=== PATIENT | male | born 2000 | race Caucasian/White ===

== ENCOUNTER 2022-07-24 08:19 | Emergency (ER) | payer MEDICAID, SELFPAY ==
[2022-07-24 08:22] VITALS: BP 119/79; PULSE 87; RESP 19; TEMP 36.6; O2SAT 98; BMI 58.7
--- NOTE | 2022-07-24 09:00 | ED.GENADULT ---
HPI - General Adult General Chief complaint: General Medical Stated complaint: lip inj Time Seen by Provider: 07/24/22 08:40 Source: patient Mode of arrival: ambulatory Limitations: no limitations History of Present Illness HPI narrative: 21-year-old male without significant medical history presents with lip swelling to the lower lip, patient reports this started off as an abscess which he popped since then he has been having lip swelling, redness and warmth overlying the lower lip particularly on the right-hand side. Patient denies fevers, chills, changes in voice, trouble controlling secretions, nausea, vomiting, abdominal pain, headache, vision changes, dizziness and weakness. Related Data Previous Rx's Medication Instructions Recorded bacitracin zinc 500 unit/gram 1 appl topical BID #28 grams 07/24/22 topical ointment (Antibiotic (bacitracin zinc)) cephalexin 500 mg tablet 500 mg PO Q6H 10 days #40 tabs 07/24/22 doxycycline hyclate 100 mg capsule 100 mg PO BID 10 days #20 caps 07/24/22 Allergies Allergy/AdvReac Type Severity Reaction Status Date / Time No Known Allergies Allergy Verified 07/24/22 08:22 [No Known Allergies*] Review of Systems Review of Systems: Constitutional : No Weight loss, No Fever, No Chills, No Fatigue, No Malaise ENT/Mouth : No sore throat, No Rhinorrhea Eyes: No Eye Pain, No Swelling, No Redness Cardiovascular : No Chest Pain, No SOB, No Dyspnea on Exertion, No Orthopnea, No Edema, No Palpitations Respiratory : No Cough, No Sputum, No Wheezing Gastrointestinal : No Nausea, No Vomiting, No Diarrhea, No Constipation, No abdominal Pain, No Hematochezia, No Melena Genitourinary : No Dysuria, No Urinary Frequency, No Hematuria, Musculoskeletal : No joint pain, No Myalgias, No Joint Swelling Skin : + Skin Lesions, No rash,+ lips swell Neuro : No Weakness, No Numbness, No Dizziness, No Headache Psych : No Anxiety/Panic, No Depression All other systems reviewed and are negative Yes all other systems are reviewed and are negative [facility] Past Medical History Attestation statement: The following information was validated with the patient. Source: old records reviewed and nursing notes reviewed Social History Social History Advance Directives: No Advance Directives Information Provided: No Physical Exam ED Vital Signs: Vital Signs - 24 hr 07/24/22 08:22 Temperature 98 F Pulse Rate 87 Respiratory Rate 19 Blood Pressure 119/79 Pulse Oximetry 98 Oxygen Delivery Method Room Air BMI result Body Mass Index 58.7 vss Appearance: Alert.? Oriented X3.? No acute distress.? Patient speaking in full sentences controlling secretions well. Head: Normocephalic, atraumatic, no step-offs or deformities Eyes: Pupils equal, round and reactive to light.? ENT: Pharynx normal.?+ large abscess with mostly induration to right lower lip, very small area of fluctuance to the inferior aspect of lip. Lips are extremely edematous, and there is some ecchymosis to the inferior aspect of lip. There is a small healing pimple to the inferior aspect of right lip. CVS: Normal heart rate and rhythm.? Pulses normal.? Respiratory: No respiratory distress.? Breath sounds normal.? Abdomen: Soft and nontender.? Skin: Skin warm and dry.? Normal skin color.? Normal skin turgor.? Extremities: No lower extremity edema.? No calf ttp. 5/5 strength to bilateral upper and lower extremities Neuro: Oriented X 3.? No motor deficit.? No sensory deficit. CN 2-12 intact Course Reevaluation(s) Reevaluation #1: Fine-needle aspiration was successfully done at the bedside, area was well cleansed with alcohol , a small needle was used, around 8 cc of purulence expressed from right lower lip. Patient tolerated procedure well. Patient to be discharged home with bacitracin, Keflex, doxycycline. Educated on warm compresses. Educated on proper use of doxycycline and warned about direct sunlight. Educated patient on diagnosis and treatment plan, answered all question, patient verbalizes understanding. At this time patient will be discharged home, advised to return with new or worsening symptoms. Educated on worrisome signs and symptoms and when to return. At this time I feel comfortable discharge home. Time: 09:07 Medical Decision Making Medical Decision Making [facility] Narrative: 899 21-year-old male presents with swelling to lower lip status post popping a pimple, worsening over the past 4 days. Physical exam significant for large abscess with mostly induration to right lower lip, very small area of fluctuance to the inferior aspect of lip. Lips are extremely edematous, and there is some ecchymosis to the inferior aspect of lip. There is a small healing pimple to the inferior aspect of right lip. There is concerns for developing abscess with small amount of fluctuance. With overlying cellulitis. Unlikely necrotizing infection, SJS, TEN. No signs of airway compromise. No signs of Freddie's Plan fine-needle aspiration. Differential Diagnosis Differential Diagnoses: The differential diagnosis associated with the presentation includes There is concerns for developing abscess with small amount of fluctuance. With overlying cellulitis. Unlikely necrotizing infection, SJS, TEN. No signs of airway compromise. No signs of Freddie's Admission/Observation Consideration of admission/observation: Escalation of care including admission/observation considered Core Measures AMI core measures followed: Yes Measure exclusions: not indicated Critical Care Time Critical Care Time Critical Care Time: No Discharge Plan Discharge Clinical Impression: Abscess Patient Disposition: Home, Self-Care Instructions: Abscess (ED), Abscess Follow-up (ED), Abscess Incision and Drainage (DC) Additional Instructions: Take your medications as prescribed. If you were prescribed antibiotics today, it is important that you take your medication to their entirety, do not skip any doses, do not finish them early. Follow-up with your primary care provider this week. Return to the emergency department with new or worsening symptoms. Such as fevers, chills, chest pain, shortness of breath, nausea, vomiting, dizziness, headache, vision changes, lethargy In case of emergency call 911 Apply warm compresses to the area every 2-3 hours. Please take your oral antibiotics and apply or topical antibiotics as prescribed. Please return in 3-4 days for a wound check or sooner if symptoms worsen. Including worsening lip swelling, difficulty breathing, trouble controlling her secretions, fevers and chills. Prescriptions: New doxycycline hyclate 100 mg capsule 100 mg PO BID 10 Days Qty: 20 0RF cephalexin 500 mg tablet 500 mg PO Q6H 10 Days Qty: 40 0RF bacitracin zinc [Antibiotic (bacitracin zinc)] 500 unit/gram ointment 1 appl topical BID Qty: 28 0RF Referrals: Physician,None [Primary Care Provider] - 2 days
== END 2022-07-24 09:24 | disposition home or self-care (01) ==
PROVIDERS: Emergency Provider Emergency Medicine
DX: K13.0 Diseases of lips (principal)
CPT/HCPCS: 10160; 99283; 99284